=== PATIENT | male | born 1950 | race Caucasian/White ===

== ENCOUNTER → 2016-09-12 | Outpatient (CLI) | payer OTHER ==
[~2016-09-12] MED LIST: AMOX TR-K CLV1 EAC4 PO; AZITHROMYCIN250 MG PO; BENZONATATE100 MG PO; CHERATUSSIN AC473 ML PO; CLARITIN10 MG PO; COMBIVENT RESPIM4 GM IH; DIFLUCAN100 MG PO; DULERA 200 MCG/13 GM IH; DUONEB 2.5-0.5 M3 ML AEROSOL; FLEXERIL5 MG PO; LEVAQUIN750 MG PO; LIDOCAINE TP; LIPITOR20 MG PO; LISINOPRIL20 MG PO; LOFIBRA,TRIGLI160 MG PO; LORAZEPAM0.5 MG PO; MEDOLOR PAK 2.1 EACH TP; METOCLOPRAMIDE H5 MG PO; MEVACOR10 M1 PO; NEBULIZER MC; NORVASC5 MG PO; OMEPRAZOLE20 MG PO; OMEPRAZOLE40 M1 PO; OXYCONTIN10 MG PO; PRAVASTATIN SOD80 MG PO; PREDNISONE10 M1 PO; PREDNISONE10 MG PO; PRILOCAINE TP; PROTONIX40 MG PO; PROZAC10 MG PO; RANITIDINE HCL150 MG PO; ROXICODONE5 MG PO; SINGULAIR10 MG PO; SYMBICORT60 INHALAT IH; SYNTHROID50 MCG PO; VANTIN200 MG PO; ZANTAC150 MG PO; ZESTRIL20 MG PO; ZOFRAN4 MG PO; ZYPREXA10 MG PO
== END | disposition home or self-care (01) ==
DX: R13.10 Dysphagia, unspecified (principal); J38.00 Paralysis of vocal cords and larynx, unspecified; C34.90 Malignant neoplasm of unspecified part of unspecified bronchus or lung
CPT/HCPCS: 92611 GN

== ENCOUNTER 2016-09-25 09:13 | Inpatient (IN) | payer OTHER ==
[~2016-09-25] VITALS: Ht 175.3 cm; Wt 67.2 kg
[~2016-09-25 09:13] MED LIST changes: -AMOX TR-K CLV1 EAC4 PO; -BENZONATATE100 MG PO; -PRAVASTATIN SOD80 MG PO; -RANITIDINE HCL150 MG PO
[2016-09-25 10:04] LABS: EOSINOPHIL (%) 0 % (0-5); HEMATOCRIT 26.3 % (38.0-50.0); IMMATURE GRANULOCYTE (%) 0.3 % (0.0-0.7); IMMATURE GRANULOCYTE COUNT 0.2 K/uL; LYMPHOCYTE COUNT 0.7 K/uL (1.0-2.8); MCHC 31.9 G/DL (30.0-36.0); MCV 87.7 FL (86-99); MONOCYTE (%) 7.6 % (3-12); MONOCYTE COUNT 0.4 K/uL (0-0.8); NEUTROPHIL (%) 80.4 % (45-76); NEUTROPHIL COUNT 4.6 K/uL (1.8-6.4); RBC DIS.WIDTH-CV 14.6 % (11.8-14.6); RBC DIS.WIDTH-SD 44.4 % (39-53); WHITE BLOOD COUNT 5.8 K/uL (4.1-10.2)
[2016-09-25 10:13] LABS: CHLORIDE 100 mEq/L (99-109); POTASSIUM 3.7 mEq/L (3.7-5.4); SODIUM 134 mEq/L (136-147)
[2016-09-25 10:14] LABS: INTER. NORMALIZED RATIO 1.1; PROTHROMBIN TIME 10.7 (9.2-11.2); PTT 27.4 (25-32)
[2016-09-25 10:16] LABS: GLUCOSE 119 mg/dL (70-99)
[2016-09-25 10:17] LABS: ANION GAP 10 MEQ/L (2-14)
[2016-09-25 10:18] LABS: TOTAL BILIRUBIN 0.4 mg/dL (0.0-1.0)
[2016-09-25 10:19] LABS: ALKALINE PHOSPHATASE 78 IU/L (3-129); GFR ESTIMATE (CALCULATED) > 59 mL/min/
[2016-09-25 10:20] LABS: UREA NITROGEN (BUN) 9 mg/dL (9-23)
[2016-09-25 10:25] LABS: TROP-I INTERPRETATION NEGATIVE; TROPONIN-I < 0.01 ng/mL (0.0-0.30)
[2016-09-25] MEDS ORDERED: RANITIDINE HCL150 MG PO (12:53)
[2016-09-25] MEDS ORDERED: BENZONATATE100 MG PO (12:54)
[2016-09-25 13:27] LABS: MEAN PLAT.VOLUME 10.5 uM^3 (9.0-12.4); PLAT.SUFFICIENCY DECREASED; USER ID SDF
[2016-09-25 13:28] LABS: PLATELET COUNT 97 K/uL (156-360)
[2016-09-25 15:26] VITALS: BP 140/71
[2016-09-25 17:45] VITALS: BP 138/64
[2016-09-25 20:07] VITALS: BP 154/76
[2016-09-25 21:09] LABS: HEMATOCRIT 21.2 % (38.0-50.0); MCV 86.9 FL (86-99)
[2016-09-25 23:28] VITALS: BP 127/73
[2016-09-25 23:43] VITALS: BP 124/70
[2016-09-25 23:57] VITALS: BP 123/69
[2016-09-26] VITALS (12 sets, daily range): BP systolic 108–152; BP diastolic 57–82
[2016-09-26 06:49] LABS: HEMATOCRIT 27.6 % (38.0-50.0); MCH 29.1 PG (29.0-34.0); MCV 88.2 FL (86-99); MEAN PLAT.VOLUME 11.4 uM^3 (9.0-12.4); PLATELET COUNT 71 K/uL (156-360); RBC DIS.WIDTH-CV 14.6 % (11.8-14.6); RBC DIS.WIDTH-SD 46.7 % (39-53); RED BLOOD COUNT 3.13 M/uL (4.00-5.50); WHITE BLOOD COUNT 5.1 K/uL (4.1-10.2)
[2016-09-26 11:59] LABS: HEMATOCRIT 27.1 % (38.0-50.0); MCV 88.3 FL (86-99)
[2016-09-26 17:52] LABS: HEMATOCRIT 27.5 % (38.0-50.0); MCV 88.4 FL (86-99)
[2016-09-27 00:15] VITALS: BP 172/92
[2016-09-27 04:05] VITALS: BP 127/61
[2016-09-27 06:25] LABS: HEMATOCRIT 24.9 % (38.0-50.0); MCH 29.9 PG (29.0-34.0); MCHC 33.7 G/DL (30.0-36.0); MCV 88.6 FL (86-99); PLATELET COUNT 66 K/uL (156-360); RBC DIS.WIDTH-SD 48.4 % (39-53); RED BLOOD COUNT 2.81 M/uL (4.00-5.50); WHITE BLOOD COUNT 4.1 K/uL (4.1-10.2)
[2016-09-27 08:11] VITALS: BP 142/69
[2016-09-27 17:01] VITALS: BP 126/63
[2016-09-27 20:00] VITALS: BP 147/69
[2016-09-27 20:07] LABS: HEMATOCRIT 25.8 % (38.0-50.0); MCV 89.3 FL (86-99)
[2016-09-28] VITALS: BP 132/77
[2016-09-28 04:11] VITALS: BP 129/62
[2016-09-28 07:19] LABS: HEMATOCRIT 25.1 % (38.0-50.0); MCH 29.5 PG (29.0-34.0); MCHC 33.1 G/DL (30.0-36.0); MCV 89.3 FL (86-99); MEAN PLAT.VOLUME 10.6 uM^3 (9.0-12.4); PLATELET COUNT 79 K/uL (156-360); RBC DIS.WIDTH-CV 15.2 % (11.8-14.6); RBC DIS.WIDTH-SD 49.1 % (39-53); RED BLOOD COUNT 2.81 M/uL (4.00-5.50)
[2016-09-28 07:34] VITALS: BP 138/73
[2016-09-28 17:26] VITALS: BP 129/63
[2016-09-28 21:46] LABS: MCV 89.6 FL (86-99)
[2016-09-29 00:33] VITALS: BP 147/67
[2016-09-29 04:01] VITALS: BP 133/67
[2016-09-29 07:52] VITALS: BP 127/69
[2016-09-29 09:21] LABS: HEMATOCRIT 24.6 % (38.0-50.0); MCH 28.7 PG (29.0-34.0); MCHC 32.1 G/DL (30.0-36.0); MCV 89.5 FL (86-99); MEAN PLAT.VOLUME 10.7 uM^3 (9.0-12.4); PLATELET COUNT 89 K/uL (156-360); RBC DIS.WIDTH-CV 15.6 % (11.8-14.6); RBC DIS.WIDTH-SD 50.1 % (39-53); RED BLOOD COUNT 2.75 M/uL (4.00-5.50); WHITE BLOOD COUNT 4.4 K/uL (4.1-10.2)
[2016-09-29 09:49] LABS: ANION GAP 7 MEQ/L (2-14); CHLORIDE 102 MEQ/L (99-109); GFR ESTIMATE (CALCULATED) > 59 mL/min/; GLUCOSE 115 mg/dL (70-99); SAMPLE HEMOLYSIS CHECK 0; SAMPLE ICTERIC CHECK 0; SAMPLE LIPEMIA CHECK 0; SODIUM 135 MEQ/L (136-147); UREA NITROGEN (BUN) 3 mg/dL (9-23)
[2016-09-29 11:53] VITALS: BP 108/57
[2016-09-29 16:00] VITALS: BP 120/60
[2016-09-29 19:59] LABS: HEMATOCRIT 24.1 % (38.0-50.0); MCV 89.9 FL (86-99)
[2016-09-29 23:19] VITALS: BP 122/72
[2016-09-30 05:59] LABS: EOSINOPHIL (%) 1.1 % (0-5); HEMATOCRIT 24.1 % (38.0-50.0); IMMATURE GRANULOCYTE (%) 0.3 % (0.0-0.7); LYMPHOCYTE COUNT 0.6 K/uL (1.0-2.8); MCH 29.2 PG (29.0-34.0); MCHC 32.4 G/DL (30.0-36.0); MCV 90.3 FL (86-99); MEAN PLAT.VOLUME 10.4 uM^3 (9.0-12.4); MONOCYTE (%) 9.2 % (3-12); MONOCYTE COUNT 0.3 K/uL (0-0.8); NEUTROPHIL (%) 71.2 % (45-76); NEUTROPHIL COUNT 2.5 K/uL (1.8-6.4); PLATELET COUNT 108 K/uL (156-360); RBC DIS.WIDTH-CV 15.7 % (11.8-14.6); RED BLOOD COUNT 2.67 M/uL (4.00-5.50); WHITE BLOOD COUNT 3.6 K/uL (4.1-10.2)
[2016-09-30 06:25] LABS: ANION GAP 7 MEQ/L (2-14); CHLORIDE 105 MEQ/L (99-109); GFR ESTIMATE (CALCULATED) > 59 mL/min/; GLUCOSE 96 mg/dL (70-99); MAGNESIUM 1.3 mg/dl (1.3-2.7); SAMPLE HEMOLYSIS CHECK 0; SAMPLE ICTERIC CHECK 0; SAMPLE LIPEMIA CHECK 0; SODIUM 139 MEQ/L (136-147); UREA NITROGEN (BUN) 3 mg/dL (9-23)
[2016-09-30 06:26] LABS: POTASSIUM 3.9 MEQ/L (3.7-5.4)
[2016-09-30 08:07] VITALS: BP 154/72
[2016-09-30 15:55] VITALS: BP 125/68
[2016-09-30 18:11] LABS: HEMATOCRIT 26.2 % (38.0-50.0); MCV 90.3 FL (86-99)
[2016-09-30 23:59] VITALS: BP 136/74
[2016-10-01 05:36] LABS: EOSINOPHIL (%) 1.2 % (0-5); EOSINOPHIL COUNT 0.1 K/uL (0-0.3); HEMATOCRIT 26.5 % (38.0-50.0); IMMATURE GRANULOCYTE (%) 0.2 % (0.0-0.7); LYMPHOCYTE COUNT 0.8 K/uL (1.0-2.8); MCH 28.7 PG (29.0-34.0); MCHC 32.1 G/DL (30.0-36.0); MCV 89.5 FL (86-99); MEAN PLAT.VOLUME 10.4 uM^3 (9.0-12.4); MONOCYTE (%) 9.4 % (3-12); MONOCYTE COUNT 0.4 K/uL (0-0.8); NEUTROPHIL (%) 68.9 % (45-76); NEUTROPHIL COUNT 2.9 K/uL (1.8-6.4); PLATELET COUNT 120 K/uL (156-360); RBC DIS.WIDTH-CV 15.7 % (11.8-14.6); RBC DIS.WIDTH-SD 50.5 % (39-53); RED BLOOD COUNT 2.96 M/uL (4.00-5.50); WHITE BLOOD COUNT 4.2 K/uL (4.1-10.2)
[2016-10-01 06:21] LABS: ANION GAP 9 MEQ/L (2-14); CHLORIDE 103 MEQ/L (99-109); GFR ESTIMATE (CALCULATED) > 59 mL/min/; GLUCOSE 95 mg/dL (70-99); POTASSIUM 3.5 MEQ/L (3.7-5.4); SAMPLE HEMOLYSIS CHECK 0; SAMPLE ICTERIC CHECK 0; SAMPLE LIPEMIA CHECK 0; SODIUM 138 MEQ/L (136-147); UREA NITROGEN (BUN) 3 mg/dL (9-23)
[2016-10-01 07:32] VITALS: BP 136/68
[2016-10-01] MEDS ORDERED: PRAVASTATIN SOD80 MG PO (12:24)
[2016-10-01] MEDS ORDERED: AMOX TR-K CLV1 EAC4 PO (12:24)
[2016-10-01] MEDS ORDERED: PROTONIX40 MG PO (12:25)
[2016-10-02 08:42] LABS: INTERNAL CONTROL VALID? YES
== END 2016-10-01 14:38 | disposition home health service (06) | DRG 377 ==
LOC: EME 09:13 → EDOF 12:36 → 5WEST 12:36 → 3EAST 09-26 10:35
PROVIDERS: Emergency Medicine; Internal Medicine; Internal Medicine Gastroenterology; Physician Assistant; Physician Assistant Medical; Student in an Organized Health Care Education/Training Program
PROC: 30233N1 Transfusion of Nonautologous Red Blood Cells into Peripheral Vein, Percutaneous Approach (ICD-10-PCS; principal; 2016-09-25)
PROC: 0DB68ZX Excision of Stomach, Via Natural or Artificial Opening Endoscopic, Diagnostic (ICD-10-PCS; principal; 2016-09-25)
DX: K92.0 Hematemesis (principal); J85.2 Abscess of lung without pneumonia; K22.10 Ulcer of esophagus without bleeding; D62 Acute posthemorrhagic anemia; C34.11 Malignant neoplasm of upper lobe, right bronchus or lung; K25.7 Chronic gastric ulcer without hemorrhage or perforation; K92.1 Melena; E87.6 Hypokalemia; J44.9 Chronic obstructive pulmonary disease, unspecified; G47.33 Obstructive sleep apnea (adult) (pediatric); K44.9 Diaphragmatic hernia without obstruction or gangrene; D69.6 Thrombocytopenia, unspecified; I10 Essential (primary) hypertension; E78.5 Hyperlipidemia, unspecified; K21.9 Gastro-esophageal reflux disease without esophagitis; E03.9 Hypothyroidism, unspecified; Z87.891 Personal history of nicotine dependence; Z86.11 Personal history of tuberculosis
CPT/HCPCS: 71010; 71020; 71260; 77385; 80048; 80053; 82272; 83735; 83880; 84484; 85014; 85018; 85025; 85027; 85610; 85730; 86850; 86900; 86901; 86920; 88305; 88342 TC; 93005; 94640; 94640 76; 99202; 99281; 99285; B4087; C9113; G0378; J1940; J2405; J2543; J7042; J7050; P9016

== ENCOUNTER 2016-10-24 12:14 | Observation (INO) | payer OTHER ==
[~2016-10-24] VITALS: Ht 175.3 cm; Wt 70.0 kg
[~2016-10-24 12:14] MED LIST changes: +AMOX TR-K CLV1 EAC4 PO; +BENZONATATE100 MG PO; +LIDOCAINE20 MG/1 M5 PO; +PRAVASTATIN SOD80 MG PO; +RANITIDINE HCL150 MG PO
[2016-10-24 16:35] LABS: CHLORIDE 96 mEq/L (99-109); POTASSIUM 3.9 mEq/L (3.7-5.4); SODIUM 130 mEq/L (136-147)
[2016-10-24 16:36] LABS: HEMATOCRIT 20.4 % (38.0-50.0); MCH 29.7 PG (29.0-34.0); MCHC 34.3 G/DL (30.0-36.0); MCV 86.4 FL (86-99); RBC DIS.WIDTH-CV 13.6 % (11.8-14.6); RBC DIS.WIDTH-SD 41.2 % (39-53)
[2016-10-24 16:37] LABS: GLUCOSE 104 mg/dL (70-99); RED BLOOD COUNT 2.36 M/uL (4.00-5.50); WHITE BLOOD COUNT 0.6 K/uL (4.1-10.2)
[2016-10-24 16:38] LABS: ANION GAP 10 MEQ/L (2-14)
[2016-10-24 16:41] LABS: GFR ESTIMATE (CALCULATED) > 59 mL/min/
[2016-10-24 16:42] LABS: UREA NITROGEN (BUN) 19 mg/dL (9-23)
[2016-10-24 16:48] LABS: TROP-I INTERPRETATION NEGATIVE; TROPONIN-I < 0.01 ng/mL (0.0-0.30)
[2016-10-24 18:13] LABS: PLAT.SUFFICIENCY DECREASED; USER ID SS
[2016-10-24 18:14] LABS: ABS NEUTROPHIL COUNT 0.25; MEAN PLAT.VOLUME 11.4 uM^3 (9.0-12.4); PLATELET COUNT 13 K/uL (156-360)
[2016-10-24 18:15] LABS: DELETE MACHINE DIFF? YES
[2016-10-24 21:00] LABS: HEMATOCRIT 20.2 % (38.0-50.0); MCH 29.1 PG (29.0-34.0); MCHC 33.2 G/DL (30.0-36.0); MCV 87.8 FL (86-99); RBC DIS.WIDTH-CV 13.6 % (11.8-14.6); RBC DIS.WIDTH-SD 41.9 % (39-53)
[2016-10-24 21:01] LABS: WHITE BLOOD COUNT 0.5 K/uL (4.1-10.2)
[2016-10-24 21:06] VITALS: BP 141/80
[2016-10-24 21:22] VITALS: BP 130/76
[2016-10-24] MEDS ORDERED: ALBUTEROL2.5 MG/3 M IH (21:42)
[2016-10-24] MEDS ORDERED: FLONASE16 G1 BOTH NARES (21:47)
[2016-10-24] MEDS ORDERED: KLOR-CON 1010 ME1 PO (21:47)
[2016-10-24] MEDS ORDERED: OCEAN NASAL 0.645 ML BOTH NARES (21:48)
[2016-10-24] MEDS ORDERED: PROAIR HFA8.5 GM IH (21:48)
[2016-10-24] MEDS ORDERED: COMPAZINE5 MG PO (21:48)
[2016-10-24] MEDS ORDERED: MAGIC MOUTHWASH PO (21:50)
[2016-10-24 22:19] VITALS: BP 127/84
[2016-10-24 22:19] LABS: EOSINOPHIL (%) 0 % (0-5); HEMATOLOGY COMMENT 1 SMEAR COMPATIBLE; LYMPHOCYTE COUNT 0.2 K/uL (1.0-2.8); MEAN PLAT.VOLUME 9.8 uM^3 (9.0-12.4); MONOCYTE (%) 21.2 % (3-12); MONOCYTE COUNT 0.1 K/uL (0-0.8); NEUTROPHIL (%) 34.6 % (45-76); NEUTROPHIL COUNT 0.2 K/uL (1.8-6.4); PLAT.SUFFICIENCY DECREASED
[2016-10-24 22:20] LABS: PLATELET COUNT 11 K/uL (156-360)
[2016-10-24 22:38] VITALS: BP 138/77
[2016-10-24 22:52] VITALS: BP 132/74
[2016-10-24 23:52] VITALS: BP 147/97
[2016-10-25] VITALS (12 sets, daily range): BP systolic 123–170; BP diastolic 60–82
[2016-10-25 09:25] LABS: HEMATOCRIT 26.9 % (38.0-50.0); MCH 30.5 PG (29.0-34.0); MCHC 35.3 G/DL (30.0-36.0); MCV 86.5 FL (86-99); RBC DIS.WIDTH-CV 13.8 % (11.8-14.6); RBC DIS.WIDTH-SD 43.9 % (39-53)
[2016-10-25 09:27] LABS: ANION GAP 9 MEQ/L (2-14); CHLORIDE 95 MEQ/L (99-109); GFR ESTIMATE (CALCULATED) > 59 mL/min/; GLUCOSE 105 mg/dL (70-99); POTASSIUM 3.4 MEQ/L (3.7-5.4); SAMPLE HEMOLYSIS CHECK 0; SAMPLE ICTERIC CHECK 0; SAMPLE LIPEMIA CHECK 0; SODIUM 131 MEQ/L (136-147); UREA NITROGEN (BUN) 13 mg/dL (9-23)
[2016-10-25 09:34] LABS: MEAN PLAT.VOLUME 9.2 uM^3 (9.0-12.4)
[2016-10-25 09:43] LABS: PLATELET COUNT 43 K/uL (156-360); RED BLOOD COUNT 3.11 M/uL (4.00-5.50); WHITE BLOOD COUNT 0.7 K/uL (4.1-10.2)
== END 2016-10-25 15:22 | disposition home or self-care (01) ==
LOC: EXP 12:14 → EME 12:14 → EDOF 23:30 → 5WEST 23:30 → EDOF 23:30 → 5WEST 10-25 00:48
PROVIDERS: Emergency Medicine; Hospitalist
PROC: 30233N1 Transfusion of Nonautologous Red Blood Cells into Peripheral Vein, Percutaneous Approach (ICD-10-PCS; principal; 2016-10-24)
DX: D61.810 Antineoplastic chemotherapy induced pancytopenia (principal); C34.11 Malignant neoplasm of upper lobe, right bronchus or lung; Z87.891 Personal history of nicotine dependence; D70.9 Neutropenia, unspecified; J85.2 Abscess of lung without pneumonia; J44.9 Chronic obstructive pulmonary disease, unspecified; I10 Essential (primary) hypertension; E03.9 Hypothyroidism, unspecified; E78.5 Hyperlipidemia, unspecified; R00.0 Tachycardia, unspecified; G47.30 Sleep apnea, unspecified; G89.29 Other chronic pain; Z87.19 Personal history of other diseases of the digestive system; Z92.21 Personal history of antineoplastic chemotherapy; Z92.3 Personal history of irradiation; Z82.3 Family history of stroke; Z80.9 Family history of malignant neoplasm, unspecified; Z88.6 Allergy status to analgesic agent
CPT/HCPCS: 71020; 77385; 80048; 80053; 81003; 83605; 84484; 85009; 85025; 85025 91; 85027; 86850; 86900; 86901; 86920; 87040; 93005; 94640; 94640 76; G0378; J2543; J7030; J7050; P9016; P9035

== ENCOUNTER 2016-11-05 09:54 | Observation (INO) | payer OTHER ==
[~2016-11-05] VITALS: Ht 175.3 cm; Wt 68.0 kg
[~2016-11-05 09:54] MED LIST changes: +ALBUTEROL2.5 MG/3 M IH; +COMPAZINE5 MG PO; +FLONASE16 G1 BOTH NARES; +KLOR-CON 1010 ME1 PO; +MAGIC MOUTHWASH PO; +OCEAN NASAL 0.645 ML BOTH NARES; +PROAIR HFA8.5 GM IH
[2016-11-05 12:12] LABS: EOSINOPHIL (%) 0 % (0-5); IMMATURE GRANULOCYTE (%) 0.4 % (0.0-0.7); IMMATURE GRANULOCYTE COUNT 0.1 K/uL; LYMPHOCYTE COUNT 0.3 K/uL (1.0-2.8); MCHC 33.5 G/DL (30.0-36.0); MCV 89.7 FL (86-99); MEAN PLAT.VOLUME 10.8 uM^3 (9.0-12.4); MONOCYTE (%) 10.6 % (3-12); MONOCYTE COUNT 0.3 K/uL (0-0.8); NEUTROPHIL (%) 78.4 % (45-76); NEUTROPHIL COUNT 2.2 K/uL (1.8-6.4); PLATELET COUNT 70 K/uL (156-360); RBC DIS.WIDTH-CV 13.7 % (11.8-14.6); RBC DIS.WIDTH-SD 42.3 % (39-53)
[2016-11-05 12:14] LABS: CHLORIDE 101 mEq/L (99-109); POTASSIUM 3.9 mEq/L (3.7-5.4); SODIUM 134 mEq/L (136-147); WHITE BLOOD COUNT 2.8 K/uL (4.1-10.2)
[2016-11-05 12:18] LABS: ANION GAP 9 MEQ/L (2-14)
[2016-11-05 12:19] LABS: TOTAL BILIRUBIN 0.2 mg/dL (0.0-1.0)
[2016-11-05 12:20] LABS: ALKALINE PHOSPHATASE 62 IU/L (3-129); GFR ESTIMATE (CALCULATED) > 59 mL/min/; GLUCOSE 106 mg/dL (70-99)
[2016-11-05 12:21] LABS: UREA NITROGEN (BUN) 16 mg/dL (9-23)
[2016-11-05 15:55] LABS: INFLUENZA A VIRAL ANTIGEN NEGATIVE; INFLUENZA B VIRAL ANTIGEN NEGATIVE
[2016-11-05 19:40] VITALS: BP 119/65
[2016-11-06 00:25] VITALS: BP 107/61
[2016-11-06 04:53] VITALS: BP 101/63
[2016-11-06 08:09] VITALS: BP 109/68
[2016-11-06 10:19] LABS: HEMATOCRIT 23.9 % (38.0-50.0); MCH 30.5 PG (29.0-34.0); MCHC 33.9 G/DL (30.0-36.0); MCV 89.8 FL (86-99); MEAN PLAT.VOLUME 10.7 uM^3 (9.0-12.4); PLATELET COUNT 69 K/uL (156-360); RBC DIS.WIDTH-CV 14.5 % (11.8-14.6); RBC DIS.WIDTH-SD 47.1 % (39-53); RED BLOOD COUNT 2.66 M/uL (4.00-5.50); WHITE BLOOD COUNT 2.2 K/uL (4.1-10.2)
[2016-11-06 10:54] LABS: ANION GAP 7 MEQ/L (2-14); CHLORIDE 104 MEQ/L (99-109); GFR ESTIMATE (CALCULATED) > 59 mL/min/; GLUCOSE 112 mg/dL (70-99); POTASSIUM 3.4 MEQ/L (3.7-5.4); SAMPLE HEMOLYSIS CHECK 0; SAMPLE ICTERIC CHECK 0; SAMPLE LIPEMIA CHECK 0; SODIUM 134 MEQ/L (136-147); UREA NITROGEN (BUN) 11 mg/dL (9-23)
[2016-11-06] MEDS ORDERED: MYCOSTATIN 100,60 ML PO (11:01)
[2016-11-06 11:36] VITALS: BP 114/70
== END 2016-11-06 14:13 | disposition home or self-care (01) ==
LOC: EME 09:54 → EDOF 16:06 → 5WEST 16:06
PROVIDERS: Internal Medicine; Physician Assistant
DX: E86.0 Dehydration (principal); C34.11 Malignant neoplasm of upper lobe, right bronchus or lung; J85.2 Abscess of lung without pneumonia; T66.XXXA Radiation sickness, unspecified, initial encounter; K20.9 Esophagitis, unspecified; D61.810 Antineoplastic chemotherapy induced pancytopenia; R11.2 Nausea with vomiting, unspecified; R05 Cough; R07.9 Chest pain, unspecified; J45.909 Unspecified asthma, uncomplicated; D72.819 Decreased white blood cell count, unspecified; I10 Essential (primary) hypertension; K21.9 Gastro-esophageal reflux disease without esophagitis; G43.909 Migraine, unspecified, not intractable, without status migrainosus; Z87.891 Personal history of nicotine dependence; J44.9 Chronic obstructive pulmonary disease, unspecified; E03.9 Hypothyroidism, unspecified; E78.5 Hyperlipidemia, unspecified
CPT/HCPCS: 71250; 80048; 80053; 81003; 85025; 85027; 87502; 94640; 94640 76; 99202; 99281; 99285; G0378; J3010; J7030; J7120

== ENCOUNTER 2016-12-11 10:24 | Inpatient (IN) | payer OTHER ==
[2016-12-11] VITALS (12 sets, daily range): BP systolic 81–113; BP diastolic 51–69
[~2016-12-11] VITALS: Ht 175.3 cm; Wt 63.2 kg
[~2016-12-11 10:24] MED LIST changes: +MYCOSTATIN 100,60 ML PO
[2016-12-11 11:18] LABS: EOSINOPHIL (%) 0.7 % (0-5); EOSINOPHIL COUNT 0.1 K/uL (0-0.3); HEMATOCRIT 23.6 % (38.0-50.0); IMMATURE GRANULOCYTE (%) 0.7 % (0.0-0.7); IMMATURE GRANULOCYTE COUNT 0.1 K/uL; INSTRUMENT ABS NEUTROPHIL CT 6.6 K/uL; LYMPHOCYTE COUNT 0.6 K/uL (1.0-2.8); MCHC 33.1 G/DL (30.0-36.0); MCV 96.7 FL (86-99); MEAN PLAT.VOLUME 10.3 uM^3 (9.0-12.4); MONOCYTE COUNT 0.8 K/uL (0-0.8); NEUTROPHIL COUNT 6.6 K/uL (1.8-6.4); PLATELET COUNT 181 K/uL (156-360); RBC DIS.WIDTH-CV 15.3 % (11.8-14.6); RBC DIS.WIDTH-SD 54.3 % (39-53); RED BLOOD COUNT 2.44 M/uL (4.00-5.50); WHITE BLOOD COUNT 8.1 K/uL (4.1-10.2)
[2016-12-11 11:27] LABS: CHLORIDE 102 mEq/L (99-109); POTASSIUM 4.2 mEq/L (3.7-5.4); SODIUM 134 mEq/L (136-147)
[2016-12-11 11:29] LABS: GLUCOSE 112 mg/dL (70-99)
[2016-12-11 11:31] LABS: ANION GAP 8 MEQ/L (2-14); TOTAL BILIRUBIN 0.3 mg/dL (0.0-1.0)
[2016-12-11 11:33] LABS: ALKALINE PHOSPHATASE 38 IU/L (3-129); GFR ESTIMATE (CALCULATED) > 59 mL/min/
[2016-12-11 11:34] LABS: UREA NITROGEN (BUN) 18 mg/dL (9-23)
[2016-12-11 11:38] LABS: TROP-I INTERPRETATION NEGATIVE; TROPONIN-I < 0.01 ng/mL (0.0-0.30)
[2016-12-11] MEDS ORDERED: DULERA 200 MCG/13 GM IH (18:51)
[2016-12-11] MEDS ORDERED: LIPITOR20 MG PO (18:51)
[2016-12-11] MEDS ORDERED: ROXICODONE5 MG PO (18:51)
[2016-12-11] MEDS ORDERED: SYNTHROID50 MCG PO (18:51)
[2016-12-11] MEDS ORDERED: OXYCONTIN10 MG PO (18:52)
[2016-12-11] MEDS ORDERED: METOCLOPRAMIDE H5 MG PO (18:52)
[2016-12-11] MEDS ORDERED: CHERATUSSIN AC473 ML PO (18:52)
[2016-12-11] MEDS ORDERED: SINGULAIR10 MG PO (18:53)
[2016-12-11] MEDS ORDERED: LISINOPRIL20 MG PO (18:53)
[2016-12-11] MEDS ORDERED: SYMBICORT60 INHALAT IH (18:53)
[2016-12-11] MEDS ORDERED: PEPCID40 MG PO (18:53)
[2016-12-11] MEDS ORDERED: ZOFRAN4 MG PO (18:54)
[2016-12-11] MEDS ORDERED: AMLODIPINE BESYL5 MG PO (18:54)
[2016-12-11] MEDS ORDERED: LOVASTATIN10 MG PO (18:54)
[2016-12-11] MEDS ORDERED: DERMACINRX EMP1 EACH TP (18:55)
[2016-12-11] MEDS ORDERED: PROVENTIL,2.5 MG/3 M IH (18:55)
[2016-12-11] MEDS ORDERED: BENZONATATE100 MG PO (18:55)
[2016-12-11] MEDS ORDERED: PROTONIX40 MG PO (18:55)
[2016-12-11] MEDS ORDERED: LORAZEPAM0.5 MG PO (18:55)
[2016-12-11] MEDS ORDERED: FLONASE16 G1 BOTH NARES (18:56)
[2016-12-11] MEDS ORDERED: ALBUTEROL2.5 MG/3 M IH (18:56)
[2016-12-11] MEDS ORDERED: OCEAN NASAL 0.645 ML BOTH NARES (18:57)
[2016-12-11] MEDS ORDERED: COMPAZINE5 MG PO (18:57)
[2016-12-11] MEDS ORDERED: K-DUR10 MEQ PO (18:57)
[2016-12-11] MEDS ORDERED: MAGIC MOUTH WASH PO (18:58)
[2016-12-11] MEDS ORDERED: LIDOCAINE20 MG/1 M5 PO (18:59)
[2016-12-11] MEDS ORDERED: LOPERAMIDE2 MG PO (18:59)
[2016-12-12 02:38] LABS: HEMATOCRIT 26.2 % (38.0-50.0); MCV 93.6 FL (86-99)
[2016-12-12 03:33] VITALS: BP 105/57
[2016-12-12 07:35] VITALS: BP 118/72
[2016-12-12 09:12] LABS: HEMATOCRIT 27.5 % (38.0-50.0); MCH 31.7 PG (29.0-34.0); MCHC 33.5 G/DL (30.0-36.0); MCV 94.8 FL (86-99); RBC DIS.WIDTH-CV 16.7 % (11.8-14.6); RBC DIS.WIDTH-SD 57.6 % (39-53); WHITE BLOOD COUNT 7.8 K/uL (4.1-10.2)
[2016-12-12 10:44] LABS: MEAN PLAT.VOLUME 10.3 uM^3 (9.0-12.4)
[2016-12-12 10:46] LABS: PLATELET COUNT 126 K/uL (156-360)
[2016-12-12 10:59] VITALS: BP 120/80
[2016-12-12 15:10] VITALS: BP 112/58
== END 2016-12-12 17:14 | disposition home or self-care (01) | DRG 812 ==
LOC: EME 10:24 → EDOF 13:54 → 5EAST 13:54
PROVIDERS: Emergency Medicine; Internal Medicine
PROC: 30233N1 Transfusion of Nonautologous Red Blood Cells into Peripheral Vein, Percutaneous Approach (ICD-10-PCS; principal; 2016-12-11)
DX: D64.81 Anemia due to antineoplastic chemotherapy (principal); C34.11 Malignant neoplasm of upper lobe, right bronchus or lung; C79.89 Secondary malignant neoplasm of other specified sites; Z92.3 Personal history of irradiation; Z92.21 Personal history of antineoplastic chemotherapy; K20.8 Other esophagitis; I10 Essential (primary) hypertension; E03.9 Hypothyroidism, unspecified; E86.0 Dehydration; K92.0 Hematemesis; J44.9 Chronic obstructive pulmonary disease, unspecified; E87.6 Hypokalemia; K21.9 Gastro-esophageal reflux disease without esophagitis; K44.9 Diaphragmatic hernia without obstruction or gangrene; G47.33 Obstructive sleep apnea (adult) (pediatric); Z99.81 Dependence on supplemental oxygen; E78.5 Hyperlipidemia, unspecified; Z86.010 Personal history of colon polyps; Z87.891 Personal history of nicotine dependence
CPT/HCPCS: 71275; 74177; 80053; 81003; 83605; 83880; 84484; 85014; 85018; 85025; 85027; 86850; 86900; 86901; 86920; 87040; 93005; 94640; 94640 76; 94799; 99202; J1650; J7030; P9016

== ENCOUNTER → 2016-12-24 | Outpatient (CLI) | payer OTHER ==
[~2016-12-24] MED LIST changes: +AMLODIPINE BESYL5 MG PO; +DERMACINRX EMP1 EACH TP; +K-DUR10 MEQ PO; +LOPERAMIDE2 MG PO; +LOVASTATIN10 MG PO; +MAGIC MOUTH WASH PO; +PEPCID40 MG PO; +PROVENTIL,2.5 MG/3 M IH
[2016-12-24 10:15] LABS: INTER. NORMALIZED RATIO 1.1; PROTHROMBIN TIME 11.7 (9.2-11.2); PTT 27.3 (25-32)
== END | disposition home or self-care (01) ==
LOC: OPR 08:32 → EDSTATUS 09:00 → OPR 09:00
PROVIDERS: Internal Medicine Medical Oncology
PROC: BB24ZZZ Computerized Tomography (CT Scan) of Bilateral Lungs (ICD-10-PCS; principal; 2016-12-24)
DX: R91.1 Solitary pulmonary nodule (principal); Z53.09 Procedure and treatment not carried out because of other contraindication; C34.11 Malignant neoplasm of upper lobe, right bronchus or lung; Z87.891 Personal history of nicotine dependence; Z92.21 Personal history of antineoplastic chemotherapy; Z92.3 Personal history of irradiation
CPT/HCPCS: 71250; 85610; 85730; J3010

== ENCOUNTER → 2017-04-08 | Outpatient (CLI) | payer OTHER ==
[~2017-04-08] MED LIST changes: +CLARITIN,ALAVAR10 MG PO; +CYCLOBENZAPRINE5 MG PO; +FENOFIBRATE160 M1 PO
[2017-04-08 09:44] LABS: TYPE OF FLUID THORACENTESIS
[2017-04-08 10:41] LABS: BODY FLUID EOSINOPHILS 0 % (0-25); BODY FLUID RBC'S < 1000 /MM^3 (0-100); BODY FLUID WBC'S 354 /MM^3 (0-500); MONONUCLEAR WBC'S 97 %; POLYNUCLEAR WBC'S 3 % (0-25)
[2017-04-08 11:38] LABS: BODY FLUID LDH 58 IU/L; BODY FLUID PROTEIN < 3.0 G/DL
== END | disposition home or self-care (01) ==
LOC: RAD 08:22 → EDSTATUS 09:00
PROVIDERS: Radiology Diagnostic Radiology
PROC: 0W993ZZ Drainage of Right Pleural Cavity, Percutaneous Approach (ICD-10-PCS; principal; 2017-04-08)
DX: J91.0 Malignant pleural effusion (principal)
CPT/HCPCS: 76942; 82945; 83615 91; 84157; 87070; 87075; 87205; 88108; 88305; 89051

== ENCOUNTER 2017-05-22 10:58 | Emergency (ER) | payer OTHER ==
[~2017-05-22] VITALS: Ht 175.3 cm; Wt 68.0 kg
[2017-05-22 13:09] LABS: EOSINOPHIL (%) 0.5 % (0-5); EOSINOPHIL COUNT 0.1 K/uL (0-0.3); HEMATOCRIT 36.1 % (38.0-50.0); IMMATURE GRANULOCYTE (%) 0.4 % (0.0-0.7); INSTRUMENT ABS NEUTROPHIL CT 7.5 K/uL; LYMPHOCYTE COUNT 1.7 K/uL (1.0-2.8); MCHC 34.1 G/DL (30.0-36.0); MEAN PLAT.VOLUME 10.4 uM^3 (9.0-12.4); MONOCYTE (%) 9.3 % (3-12); NEUTROPHIL (%) 72.6 % (45-76); NEUTROPHIL COUNT 7.5 K/uL (1.8-6.4); PLATELET COUNT 180 K/uL (156-360); RBC DIS.WIDTH-SD 44.5 % (39-53); RED BLOOD COUNT 3.84 M/uL (4.00-5.50); WHITE BLOOD COUNT 10.4 K/uL (4.1-10.2)
[2017-05-22 13:18] LABS: CHLORIDE 102 mEq/L (99-109); POTASSIUM 2.9 mEq/L (3.7-5.4); SODIUM 141 mEq/L (136-147)
[2017-05-22 13:20] LABS: GLUCOSE 117 mg/dL (70-99)
[2017-05-22 13:22] LABS: ANION GAP 13 MEQ/L (2-14); TOTAL BILIRUBIN 0.6 mg/dL (0.0-1.0)
[2017-05-22 13:24] LABS: ALKALINE PHOSPHATASE 67 IU/L (3-129); GFR ESTIMATE (CALCULATED) > 59 mL/min/
[2017-05-22 13:25] LABS: UREA NITROGEN (BUN) 15 mg/dL (9-23)
[2017-05-22] MEDS ORDERED: ZOFRAN ODT4 MG PO (16:08)
[2017-05-22] MEDS ORDERED: MORPHINE S10 MG/5 ML PO (16:08)
[2017-05-22] MEDS ORDERED: OMEPRAZOLE10 M1 PO (16:12)
[2017-05-22 16:22] VITALS: BP 133/79
== END 2017-05-22 17:13 | disposition home or self-care (01) ==
LOC: EME 10:58
PROVIDERS: Physician Assistant
DX: G89.3 Neoplasm related pain (acute) (chronic) (principal); T40.4X5A Adverse effect of other synthetic narcotics, initial encounter; C34.90 Malignant neoplasm of unspecified part of unspecified bronchus or lung; E86.0 Dehydration; E87.6 Hypokalemia; K20.9 Esophagitis, unspecified; I10 Essential (primary) hypertension; J44.9 Chronic obstructive pulmonary disease, unspecified; Z87.891 Personal history of nicotine dependence; Z88.6 Allergy status to analgesic agent
CPT/HCPCS: 71020; 80053; 81003; 85025; 93005; 99281; 99285; J2270; J3480; J7120

== ENCOUNTER → 2017-05-29 | Outpatient (CLI) | payer OTHER ==
[~2017-05-29] VITALS: Ht 175.3 cm; Wt 68.0 kg
[~2017-05-29] MED LIST changes: +MORPHINE S10 MG/5 ML PO; +OMEPRAZOLE10 M1 PO; +ZOFRAN ODT4 MG PO
[2017-05-29 12:34] LABS: PTT 28.3 SEC (25-37)
== END | disposition home or self-care (01) ==
LOC: OPR 11:23 → EDSTATUS 12:00
PROVIDERS: Internal Medicine Medical Oncology
PROC: 0FB03ZX Excision of Liver, Percutaneous Approach, Diagnostic (ICD-10-PCS; principal; 2017-05-29)
DX: C78.7 Secondary malignant neoplasm of liver and intrahepatic bile duct (principal); C34.11 Malignant neoplasm of upper lobe, right bronchus or lung; K44.9 Diaphragmatic hernia without obstruction or gangrene; Z92.21 Personal history of antineoplastic chemotherapy; Z92.3 Personal history of irradiation; K21.0 Gastro-esophageal reflux disease with esophagitis; E78.5 Hyperlipidemia, unspecified; I10 Essential (primary) hypertension; E03.9 Hypothyroidism, unspecified; Z86.11 Personal history of tuberculosis; Z87.891 Personal history of nicotine dependence
CPT/HCPCS: 77012; 85610; 85730; 88307; 88341 TC; 88342 TC; J2270

== ENCOUNTER 2017-09-17 09:57 | Inpatient (IN) | payer OTHER ==
[~2017-09-17] VITALS: Ht 175.3 cm; Wt 66.7 kg
[~2017-09-17 09:57] MED LIST changes: +CEFTIN500 MG PO; +DELTASONE20 M1 PO; +MORPHINE SULFAT15 MG PO; +VIRTUSSIN DAC473 ML PO
[2017-09-17 11:03] LABS: HEMATOCRIT 39.5 % (38.0-50.0); HEMOGLOBIN 13.5 G/DL (12.5-16.6); MCH 31.5 PG (29.0-34.0); MCHC 34.2 G/DL (30.0-36.0); MCV 92.1 FL (86-99); RBC DIS.WIDTH-CV 14.3 % (11.8-14.6); RBC DIS.WIDTH-SD 48.2 % (39-53); RED BLOOD COUNT 4.29 M/uL (4.00-5.50)
[2017-09-17 11:07] LABS: PLATELET COUNT 298 K/uL (156-360)
[2017-09-17 11:12] LABS: CHLORIDE 99 mEq/L (99-109); POTASSIUM 2.9 mEq/L (3.7-5.4); SODIUM 137 mEq/L (136-147)
[2017-09-17 11:14] LABS: GLUCOSE 176 mg/dL (70-99)
[2017-09-17 11:18] LABS: CREATININE 0.9 mg/dL (0.6-1.3); GFR ESTIMATE (CALCULATED) > 59 mL/min/ (58.99-99999)
[2017-09-17 11:19] LABS: UREA NITROGEN (BUN) 19 mg/dL (9-23)
[2017-09-17 12:33] LABS: GASTRIC OCCULT BLD. POSITIVE
[2017-09-17 14:37] LABS: MAGNESIUM 1.3 mg/dL (1.3-2.7)
[2017-09-17 14:53] LABS: HEMATOCRIT 30.2 % (38.0-50.0); HEMOGLOBIN 10.2 G/DL (12.5-16.6); MCV 93.8 FL (86-99)
[2017-09-17] MEDS ORDERED: METRONIDAZOLE500 MG PO (15:00)
[2017-09-17] MEDS ORDERED: DOXYCYCLINE MO100 M1 PO (15:01)
[2017-09-17] MEDS ORDERED: PREDNISONE20 MG PO (15:02)
[2017-09-17] MEDS ORDERED: LISINOPRIL20 MG PO (15:06)
[2017-09-17 18:00] VITALS: BP 111/63
[2017-09-17 20:43] LABS: HEMATOCRIT 29.4 % (38.0-50.0); HEMOGLOBIN 9.5 G/DL (12.5-16.6); MCV 95.8 FL (86-99)
[2017-09-17 23:59] VITALS: BP 104/58
[2017-09-18 03:09] LABS: HEMATOCRIT 26.8 % (38.0-50.0); HEMOGLOBIN 8.8 G/DL (12.5-16.6); MCV 95.7 FL (86-99)
[2017-09-18 07:00] VITALS: BP 125/69
[2017-09-18 08:01] LABS: APPEARANCE CLEAR ((CLEAR)); BILIRUBIN NEGATIVE; BLOOD NEGATIVE; COLOR YELLOW ((YELLOW)); GLUCOSE (STRIP) NEGATIVE; KETONES NEGATIVE; LEUKOCYTES NEGATIVE; NITRITE NEGATIVE; PROTEIN (STRIP) NEGATIVE; UCUL ADDED? NO; UROBILINOGEN 0.2 MG/DL (0.2-1.0)
[2017-09-18 09:24] LABS: HEMATOCRIT 29.7 % (38.0-50.0); HEMOGLOBIN 9.7 G/DL (12.5-16.6); MCV 97.4 FL (86-99)
[2017-09-18 09:33] LABS: BASOPHIL (%) 0.1 % (0-1); EOSINOPHIL (%) 0.2 % (0-5); HEMATOCRIT 29.7 % (38.0-50.0); HEMOGLOBIN 9.6 G/DL (12.5-16.6); IMMATURE GRANULOCYTE (%) 0.9 % (0.0-0.7); LYMPHOCYTE (%) 8.6 % (15-42); MCH 31.6 PG (29.0-34.0); MCHC 32.3 G/DL (30.0-36.0); MCV 97.7 FL (86-99); MONOCYTE (%) 4.6 % (3-12); MONOCYTE COUNT 0.6 K/uL (0-0.8); NEUTROPHIL (%) 85.6 % (45-76); NEUTROPHIL COUNT 10.3 K/uL (1.8-6.4); RBC DIS.WIDTH-CV 14.6 % (11.8-14.6); RBC DIS.WIDTH-SD 52.4 % (39-53)
[2017-09-18 09:34] LABS: RED BLOOD COUNT 3.04 M/uL (4.00-5.50)
[2017-09-18 09:48] LABS: PLAT.SUFFICIENCY ADEQUATE
[2017-09-18 09:51] LABS: CHLORIDE 111 MEQ/L (99-109); CREATININE 0.7 MG/DL (0.6-1.3); GFR ESTIMATE (CALCULATED) > 59 mL/min/ (58.99-99999); GLUCOSE 130 mg/dL (70-99); POTASSIUM 3.2 MEQ/L (3.7-5.4); UREA NITROGEN (BUN) 12 mg/dL (9-23)
[2017-09-18 09:53] LABS: PLATELET COUNT 166 K/uL (156-360)
[2017-09-18 09:58] LABS: SODIUM 145 MEQ/L (136-147)
[2017-09-18 11:00] VITALS: BP 128/72
[2017-09-18 15:00] VITALS: BP 109/58
[2017-09-18 15:26] LABS: HEMATOCRIT 28.9 % (38.0-50.0); HEMOGLOBIN 9.4 G/DL (12.5-16.6); MCV 98.3 FL (86-99)
[2017-09-18 20:19] VITALS: BP 120/61
[2017-09-18 21:18] LABS: HEMATOCRIT 29.4 % (38.0-50.0); HEMOGLOBIN 9.5 G/DL (12.5-16.6); MCV 96.4 FL (86-99)
[2017-09-18 21:41] VITALS: BP 120/70
[2017-09-19 06:28] LABS: BASOPHIL (%) 0.1 % (0-1); EOSINOPHIL (%) 0 % (0-5); HEMATOCRIT 30.4 % (38.0-50.0); HEMOGLOBIN 9.6 G/DL (12.5-16.6); IMMATURE GRANULOCYTE (%) 0.7 % (0.0-0.7); LYMPHOCYTE (%) 6.9 % (15-42); LYMPHOCYTE COUNT 0.5 K/uL (1.0-2.8); MCH 30.3 PG (29.0-34.0); MCHC 31.6 G/DL (30.0-36.0); MCV 95.9 FL (86-99); MONOCYTE (%) 2.1 % (3-12); MONOCYTE COUNT 0.2 K/uL (0-0.8); NEUTROPHIL (%) 90.2 % (45-76); NEUTROPHIL COUNT 6.5 K/uL (1.8-6.4); PLATELET COUNT 194 K/uL (156-360); RBC DIS.WIDTH-CV 14.5 % (11.8-14.6); RBC DIS.WIDTH-SD 50.9 % (39-53); RED BLOOD COUNT 3.17 M/uL (4.00-5.50); WHITE BLOOD COUNT 7.3 K/uL (4.1-10.2)
[2017-09-19 06:54] LABS: CREATININE 0.7 MG/DL (0.6-1.3); GFR ESTIMATE (CALCULATED) > 59 mL/min/ (58.99-99999)
[2017-09-19 08:14] LABS: POTASSIUM 4.6 MEQ/L (3.7-5.4)
[2017-09-19] MEDS ORDERED: AUGMENTIN875 MG PO (10:12)
[2017-09-19] MEDS ORDERED: VANCOMYCIN125 MG/2.5 PO (10:12)
[2017-09-19] MEDS ORDERED: ADVAIR HFA120 INHALA IH (10:14)
[2017-09-19] MEDS ORDERED: SPIRIVA RESPIMAT4 GM IH (10:16)
[2017-09-19] MEDS ORDERED: PEPCID40 MG PO (10:27)
[2017-09-19] MEDS ORDERED: PREDNISONE10 MG PO (11:54)
== END 2017-09-19 14:26 | disposition home or self-care (01) | DRG 377 ==
LOC: EME 09:57 → EDOF 12:54 → 5EAST 12:54 → CANRESERV 12:59 → ENRESERV 12:59 → 5EAST 17:46 → ENPENDDIS 09-19 → 5EAST 09-19 14:26
PROVIDERS: Emergency Medicine; Hospitalist; Internal Medicine; Internal Medicine Gastroenterology
DX: K92.0 Hematemesis (principal); A04.71 Enterocolitis due to Clostridium difficile, recurrent; J18.9 Pneumonia, unspecified organism; Y95 Nosocomial condition; J44.0 Chronic obstructive pulmonary disease with (acute) lower respiratory infection; C34.11 Malignant neoplasm of upper lobe, right bronchus or lung; J44.1 Chronic obstructive pulmonary disease with (acute) exacerbation; E87.6 Hypokalemia; C78.7 Secondary malignant neoplasm of liver and intrahepatic bile duct; I10 Essential (primary) hypertension; E78.5 Hyperlipidemia, unspecified; G62.9 Polyneuropathy, unspecified; K21.0 Gastro-esophageal reflux disease with esophagitis; R13.10 Dysphagia, unspecified; K29.70 Gastritis, unspecified, without bleeding; E03.9 Hypothyroidism, unspecified; D64.9 Anemia, unspecified; G47.33 Obstructive sleep apnea (adult) (pediatric); K64.9 Unspecified hemorrhoids; K25.9 Gastric ulcer, unspecified as acute or chronic, without hemorrhage or perforation; Z87.01 Personal history of pneumonia (recurrent); Z86.010 Personal history of colon polyps; Z87.11 Personal history of peptic ulcer disease; Z87.19 Personal history of other diseases of the digestive system; Z92.21 Personal history of antineoplastic chemotherapy; Z92.3 Personal history of irradiation; Z87.891 Personal history of nicotine dependence; Z80.0 Family history of malignant neoplasm of digestive organs; Z82.49 Family history of ischemic heart disease and other diseases of the circulatory system
CPT/HCPCS: 71045; 71046; 71260; 74177; 80048; 80053; 80202; 81003; 82271; 82565; 83605; 83735; 84132; 84132 91; 85014; 85018; 85025; 85027; 86850; 86900; 86901; 87040; 87070; 87205; 87449; 87641; 90686; 93005; 94640; 94640 76; 99202; 99281; 99285; C9113; J0456; J0692; J2270; J2405; J2543; J2920; J3370; J3480; J7030; J7050; S0028; S0030

== ENCOUNTER 2018-01-06 14:44 | Inpatient (IN) | payer OTHER ==
[~2018-01-06] VITALS: Ht 175.3 cm; Wt 68.6 kg
[~2018-01-06 14:44] MED LIST changes: +ADVAIR HFA120 INHALA IH; +AUGMENTIN875 MG PO; +DOXYCYCLINE HY100 MG PO; +DOXYCYCLINE MO100 M1 PO; +LOMOTIL TABLET1 EACH PO; +METRONIDAZOLE500 MG PO; +PREDNISONE20 MG PO; +SPIRIVA RESPIMAT4 GM IH; +VANCOMYCIN125 MG/2.5 PO
[2018-01-06 15:58] LABS: BASOPHIL (%) 0.2 % (0-1); EOSINOPHIL (%) 0.1 % (0-5); HEMATOCRIT 28.9 % (38.0-50.0); HEMOGLOBIN 9.5 G/DL (12.5-16.6); IMMATURE GRANULOCYTE (%) 0.5 % (0.0-0.7); LYMPHOCYTE (%) 2.8 % (15-42); LYMPHOCYTE COUNT 0.5 K/uL (1.0-2.8); MCH 31.3 PG (29.0-34.0); MCHC 32.9 G/DL (30.0-36.0); MCV 95.1 FL (86-99); MONOCYTE (%) 6.1 % (3-12); MONOCYTE COUNT 1.1 K/uL (0-0.8); NEUTROPHIL (%) 90.3 % (45-76); NEUTROPHIL COUNT 16.5 K/uL (1.8-6.4); PLATELET COUNT 150 K/uL (156-360); RBC DIS.WIDTH-SD 52.5 % (39-53); RED BLOOD COUNT 3.04 M/uL (4.00-5.50); WHITE BLOOD COUNT 18.2 K/uL (4.1-10.2)
[2018-01-06 16:07] LABS: INTER. NORMALIZED RATIO 1.2
[2018-01-06 16:08] LABS: ALBUMIN 3.2 g/dL (3.2-4.8); CHLORIDE 98 mEq/L (99-109); SODIUM 134 mEq/L (136-147)
[2018-01-06 16:10] LABS: GLUCOSE 131 mg/dL (70-99); PTT 31.3 SEC (25-37)
[2018-01-06 16:11] LABS: TOTAL PROTEIN 5.6 g/dL (6.4-8.3)
[2018-01-06 16:12] LABS: TOTAL BILIRUBIN 0.4 mg/dL (0.0-1.0)
[2018-01-06 16:14] LABS: ALKALINE PHOSPHATASE 150 IU/L (3-129); CREATININE 0.8 mg/dL (0.6-1.3); GFR ESTIMATE (CALCULATED) > 59 mL/min/ (58.99-99999)
[2018-01-06 16:15] LABS: UREA NITROGEN (BUN) 10 mg/dL (9-23)
[2018-01-06 16:16] LABS: AST (GOT) 12 IU/L (2-34)
[2018-01-06 16:17] LABS: ALT (GPT) 9 IU/L (3-49); LIPASE 4 U/L (1.0-51.0)
[2018-01-06 16:20] LABS: TROP-I INTERPRETATION NEGATIVE; TROPONIN-I < 0.01 ng/mL (0.0-0.30)
[2018-01-06 19:11] LABS: APPEARANCE CLEAR ((CLEAR)); BILIRUBIN NEGATIVE; BLOOD NEGATIVE; COLOR STRAW ((YELLOW)); GLUCOSE (STRIP) NEGATIVE; KETONES 5; LEUKOCYTES NEGATIVE; NITRITE NEGATIVE; PROTEIN (STRIP) NEGATIVE; UCUL ADDED? NO; UROBILINOGEN 0.2 MG/DL (0.2-1.0)
[2018-01-06 20:15] VITALS: BP 119/69
[2018-01-06 22:55] LABS: HDL CHOLESTEROL 43 MG/DL (Desirable>=40); LDL CHOLESTEROL 68 mg/dL (Desirable<100); NON-HDL CHOLESTEROL 84 mg/dL (Desirable<160); TOTAL CHOLESTEROL 127 mg/dL (Desirable<200); TRIGLYCERIDES 78 MG/DL (Normal: <150)
[2018-01-07 00:40] VITALS: BP 108/60
[2018-01-07 04:37] VITALS: BP 101/64
[2018-01-07 05:19] LABS: BASOPHIL (%) 0.3 % (0-1); EOSINOPHIL (%) 0.6 % (0-5); EOSINOPHIL COUNT 0.1 K/uL (0-0.3); HEMATOCRIT 27.7 % (38.0-50.0); HEMOGLOBIN 8.6 G/DL (12.5-16.6); IMMATURE GRANULOCYTE (%) 0.5 % (0.0-0.7); LYMPHOCYTE (%) 12.5 % (15-42); LYMPHOCYTE COUNT 1.1 K/uL (1.0-2.8); MCV 96.5 FL (86-99); MONOCYTE (%) 10.9 % (3-12); NEUTROPHIL (%) 75.2 % (45-76); NEUTROPHIL COUNT 6.7 K/uL (1.8-6.4); PLATELET COUNT 148 K/uL (156-360); RBC DIS.WIDTH-CV 15.1 % (11.8-14.6); RBC DIS.WIDTH-SD 53.1 % (39-53); RED BLOOD COUNT 2.87 M/uL (4.00-5.50); WHITE BLOOD COUNT 8.9 K/uL (4.1-10.2)
[2018-01-07 05:51] LABS: ALBUMIN 2.3 G/DL (3.2-4.8); ALKALINE PHOSPHATASE 96 IU/L (3-129); ALT (GPT) 7 IU/L (3-49); AST (GOT) 10 IU/L (2-34); CHLORIDE 104 MEQ/L (99-109); CREATININE 0.7 MG/DL (0.6-1.3); DIRECT BILIRUBIN 0.1 mg/dL (0.0-0.3); GFR ESTIMATE (CALCULATED) > 59 mL/min/ (58.99-99999); GLUCOSE 104 mg/dL (70-99); POTASSIUM 3.4 MEQ/L (3.7-5.4); SODIUM 138 MEQ/L (136-147); TOTAL BILIRUBIN 0.4 MG/DL (0.0-1.0); TOTAL PROTEIN 4.5 G/DL (6.4-8.3); UREA NITROGEN (BUN) 8 mg/dL (9-23)
[2018-01-07 07:30] VITALS: BP 142/75
[2018-01-07 09:37] LABS: HEMOGLOBIN A1c (GLYCOHEMOGLOB) 5.4 % (Below 5.7)
[2018-01-07 12:28] VITALS: BP 139/77
[2018-01-07 15:56] VITALS: BP 123/62
[2018-01-07 19:30] VITALS: BP 121/70
[2018-01-08] VITALS: BP 115/63
[2018-01-08 07:27] VITALS: BP 131/65
[2018-01-08 12:08] LABS: C DIFF TOXIN NEGATIVE (NEGATIVE)
[2018-01-08 13:49] VITALS: BP 129/66
[2018-01-08 16:36] VITALS: BP 147/80
[2018-01-08 19:30] VITALS: BP 134/75
[2018-01-09] VITALS (7 sets, daily range): BP systolic 118–148; BP diastolic 61–81
[2018-01-09 06:18] LABS: HEMATOCRIT 27.8 % (38.0-50.0); HEMOGLOBIN 8.9 G/DL (12.5-16.6); MCH 30.9 PG (29.0-34.0); MCV 96.5 FL (86-99); NRBC (%) 0.1 /100 WBC (0-0); RBC DIS.WIDTH-CV 15.2 % (11.8-14.6); RBC DIS.WIDTH-SD 53.9 % (39-53); RED BLOOD COUNT 2.88 M/uL (4.00-5.50); WHITE BLOOD COUNT 14.7 K/uL (4.1-10.2)
[2018-01-09 06:19] LABS: PLATELET COUNT 229 K/uL (156-360)
[2018-01-09 06:44] LABS: CHLORIDE 108 MEQ/L (99-109); CREATININE 0.7 MG/DL (0.6-1.3); GFR ESTIMATE (CALCULATED) > 59 mL/min/ (58.99-99999); GLUCOSE 124 mg/dL (70-99); POTASSIUM 3.8 MEQ/L (3.7-5.4); SODIUM 142 MEQ/L (136-147); UREA NITROGEN (BUN) 8 mg/dL (9-23)
[2018-01-10 00:16] VITALS: BP 143/68
[2018-01-10 07:20] VITALS: BP 164/92
[2018-01-10] MEDS ORDERED: AMOX TR-K CLV1 EAC4 PO (10:41)
[2018-01-10] MEDS ORDERED: DEXAMETHASONE4 MG PO (10:42)
[2018-01-10] MEDS ORDERED: MORPHINE SULFAT15 MG PO (10:44)
[2018-01-10] MEDS ORDERED: FLORASTOR250 MG PO (10:44)
[2018-01-10 11:35] VITALS: BP 16/68
== END 2018-01-10 12:17 | disposition home or self-care (01) | DRG 871 ==
LOC: EME 14:44 → 4EAST 18:53 → EDOF 18:53 → ENRESERV 18:55 → 4EAST 20:01 → CANRESERV 01-08 11:17 → ENRESERV 01-08 11:17 → CANRESERV 01-08 13:31 → ENRESERV 01-09 13:33 → 5EAST 01-09 16:56
PROVIDERS: Emergency Medicine; Hospitalist
DX: A41.9 Sepsis, unspecified organism (principal); R65.20 Severe sepsis without septic shock; J96.01 Acute respiratory failure with hypoxia; J18.9 Pneumonia, unspecified organism; G93.6 Cerebral edema; C79.31 Secondary malignant neoplasm of brain; J44.0 Chronic obstructive pulmonary disease with (acute) lower respiratory infection; J44.1 Chronic obstructive pulmonary disease with (acute) exacerbation; C78.7 Secondary malignant neoplasm of liver and intrahepatic bile duct; J98.11 Atelectasis; R19.7 Diarrhea, unspecified; I10 Essential (primary) hypertension; E78.5 Hyperlipidemia, unspecified; K21.9 Gastro-esophageal reflux disease without esophagitis; E03.9 Hypothyroidism, unspecified; Y95 Nosocomial condition; Z85.118 Personal history of other malignant neoplasm of bronchus and lung; Z86.11 Personal history of tuberculosis; Z86.010 Personal history of colon polyps; Z86.19 Personal history of other infectious and parasitic diseases; Z87.01 Personal history of pneumonia (recurrent); Z87.11 Personal history of peptic ulcer disease; Z87.891 Personal history of nicotine dependence; Z92.21 Personal history of antineoplastic chemotherapy; Z92.3 Personal history of irradiation
CPT/HCPCS: 70450; 70553; 71275; 77334; 77470; 80048; 80053; 80061; 80076; 81003; 83036; 83605; 83690; 84484; 85025; 85027; 85610; 85730; 87040; 87070; 87205; 87449; 87493; 93005; 93880; 94640; 94640 76; 94799; 99202; 99281; 99285; J0295; J0456; J1100; J1644; J2405; J2543; J3370; J7030; J7050; J8540

== ENCOUNTER 2018-02-02 09:59 | Inpatient (IN) | payer OTHER ==
[~2018-02-02] VITALS: Ht 175.3 cm; Wt 69.5 kg
[~2018-02-02 09:59] MED LIST changes: +DEXAMETHASONE4 MG PO; +FLORASTOR250 MG PO
[2018-02-02 10:41] LABS: HEMATOCRIT 39.1 % (38.0-50.0); HEMOGLOBIN 12.8 G/DL (12.5-16.6); MCH 31.2 PG (29.0-34.0); MCHC 32.7 G/DL (30.0-36.0); MCV 95.4 FL (86-99); NRBC (%) 0.4 /100 WBC (0-0); PLATELET COUNT 165 K/uL (156-360); RBC DIS.WIDTH-CV 16.5 % (11.8-14.6); RBC DIS.WIDTH-SD 58.7 % (39-53); WHITE BLOOD COUNT 6.8 K/uL (4.1-10.2)
[2018-02-02 10:47] LABS: ALBUMIN 2.6 g/dL (3.2-4.8); CHLORIDE 102 mEq/L (99-109); POTASSIUM 3.5 mEq/L (3.7-5.4); SODIUM 135 mEq/L (136-147)
[2018-02-02 10:49] LABS: GLUCOSE 189 mg/dL (70-99)
[2018-02-02 10:51] LABS: TOTAL BILIRUBIN 0.9 mg/dL (0.0-1.0)
[2018-02-02 10:53] LABS: ALKALINE PHOSPHATASE 95 IU/L (3-129); GFR ESTIMATE (CALCULATED) > 59 mL/min/ (58.99-99999)
[2018-02-02 10:54] LABS: AST (GOT) 13 IU/L (2-34); UREA NITROGEN (BUN) 26 mg/dL (9-23)
[2018-02-02 10:56] LABS: ALT (GPT) 13 IU/L (3-49)
[2018-02-02 11:00] LABS: TROP-I INTERPRETATION NEGATIVE; TROPONIN-I 0.02 ng/mL (0.0-0.30)
[2018-02-02] MEDS ORDERED: FLONASE16 G1 BOTH NARES (13:31)
[2018-02-02] MEDS ORDERED: SPIRIVA RESPIMAT4 GM IH (13:32)
[2018-02-02] MEDS ORDERED: VIRTUSSIN AC L118 ML PO (13:32)
[2018-02-02] MEDS ORDERED: VERAPAMIL SR120 MG PO (13:33)
[2018-02-02] MEDS ORDERED: IMODIUM A-1 MG/7.5 M PO (13:34)
[2018-02-02] MEDS ORDERED: ALKA-SELTZER O1 EACH PO (13:35)
[2018-02-02] MEDS ORDERED: MORPHINE SULFAT15 MG PO (13:35)
[2018-02-02] MEDS ORDERED: PROBIOTIC1 EAC1 PO (13:36)
[2018-02-02] MEDS ORDERED: VENTOLIN HFA18 GM IH (13:37)
[2018-02-02] MEDS ORDERED: TUMS500 MG PO (13:37)
[2018-02-02 14:52] VITALS: BP 141/74
[2018-02-02 14:54] LABS: COMMENTS - BLOOD GASES A+C+; SITE RR
[2018-02-02 14:55] LABS: DEVICE HEATED HIGH FLOW; FI02 100 %; O2 FLOW 40 L/MIN; O2 SATURATION (CALCULATED) 95.6 % (95-99); PCO2 27 mm Hg (35-45); PO2 73 mm Hg (80-100); TOTAL RESP RATE 36 resp/min; pH 7.34 (7.35-7.45)
[2018-02-02 14:56] LABS: BASE EXCESS -9.7 mEq/L (-3 to +3); BICARBONATE 14.6 mEq/L (22-26)
[2018-02-02 19:00] VITALS: BP 127/66
[2018-02-02 22:30] VITALS: BP 117/63
[2018-02-03 04:00] VITALS: BP 127/75
[2018-02-03 07:30] VITALS: BP 134/78
[2018-02-03 10:10] LABS: CHLORIDE 109 MEQ/L (99-109); CREATININE 0.7 MG/DL (0.6-1.3); GFR ESTIMATE (CALCULATED) > 59 mL/min/ (58.99-99999); GLUCOSE 165 mg/dL (70-99); SODIUM 137 MEQ/L (136-147); UREA NITROGEN (BUN) 22 mg/dL (9-23)
[2018-02-03 11:40] VITALS: BP 131/65
[2018-02-03 15:55] VITALS: BP 143/80
[2018-02-03 19:54] VITALS: BP 142/75
[2018-02-03 22:22] VITALS: BP 150/81
[2018-02-04 03:50] VITALS: BP 157/93
[2018-02-04 07:25] VITALS: BP 161/99
[2018-02-04 07:47] LABS: COMMENTS - BLOOD GASES A+C+; DEVICE HEATED HIGH FLOW NC; FI02 90 %; O2 FLOW 50 L/MIN; SITE RR; TOTAL RESP RATE 34 resp/min; pH 7.46 (7.35-7.45)
[2018-02-04 07:48] LABS: BASE EXCESS -0.5 mEq/L (-3 to +3); BICARBONATE 22.8 mEq/L (22-26); PCO2 32 mm Hg (35-45); PO2 81 mm Hg (80-100)
[2018-02-04 12:34] VITALS: BP 156/82
[2018-02-04 15:37] VITALS: BP 180/94
[2018-02-04 16:44] VITALS: BP 155/78
[2018-02-04 23:45] VITALS: BP 143/78
[2018-02-05 04:21] VITALS: BP 137/80
[2018-02-05 07:05] VITALS: BP 144/94
[2018-02-05 11:00] VITALS: BP 149/78
[2018-02-05 20:03] VITALS: BP 132/68
[2018-02-06] VITALS (14 sets, daily range): BP systolic 98–148; BP diastolic 62–110
[2018-02-06 10:25] LABS: BASE EXCESS -2.9 mEq/L (-3 to +3); BICARBONATE 22.6 mEq/L (22-26); CARBOXY HGB 1.8 % (0-5); METHEMOGLOBIN 1.2 % (0-1.5); PCO2 41 mm Hg (35-45); PO2 63 mm Hg (80-100); pH 7.35 (7.35-7.45)
[2018-02-06 10:26] LABS: COMMENTS - BLOOD GASES A+C+; DEVICE HHFNC; FI02 100 %; O2 FLOW 70 L/MIN; SITE LR; TOTAL RESP RATE 30 resp/min
[2018-02-07] VITALS (18 sets, daily range): BP systolic 31–137; BP diastolic 17–84
[2018-02-07 05:46] LABS: HEMATOCRIT 29.5 % (38.0-50.0); MCHC 31.5 G/DL (30.0-36.0); MCV 98.3 FL (86-99); NRBC (%) 1.3 /100 WBC (0-0); RBC DIS.WIDTH-CV 17.7 % (11.8-14.6); RBC DIS.WIDTH-SD 64.1 % (39-53)
[2018-02-07 05:53] LABS: HEMOGLOBIN 9.3 G/DL (12.5-16.6)
[2018-02-07 06:02] LABS: ALKALINE PHOSPHATASE 51 IU/L (3-129); ALT (GPT) 22 IU/L (3-49); AST (GOT) 32 IU/L (2-34); CHLORIDE 111 MEQ/L (99-109); GLUCOSE 159 mg/dL (70-99); MAGNESIUM 1.9 mg/dl (1.3-2.7); PHOSPHORUS 4.1 mg/dL (2.5-4.9); POTASSIUM 3.6 MEQ/L (3.7-5.4); TOTAL BILIRUBIN 0.4 MG/DL (0.0-1.0)
[2018-02-07 06:06] LABS: ALBUMIN < 1.5 G/DL (3.2-4.8); CREATININE 1.3 MG/DL (0.6-1.3); GFR ESTIMATE (CALCULATED) 59 mL/min/ (58.99-99999); SODIUM 146 MEQ/L (136-147); UREA NITROGEN (BUN) 61 mg/dL (9-23)
[2018-02-07 07:01] LABS: ABS NEUTROPHIL COUNT 1.7; ANISOCYTOSIS 2+; BAND NEUTROPHILS 22.2 % (0-8.0); BURR CELLS 1+; EOSINOPHIL ABS CT 0; IMM.PLATELET FRACTION 27.5 (1-7); LYMPHOCYTES 1.9 % (15.0-45.0); MACROCYTES 2+; METAMYELOCYTES 7.4 %; MONOCYTES 18.5 % (0-9.0); MYELOCYTES 16.7 %; NUCLEATED RBC'S 6.5; PLAT.SUFFICIENCY VERY DECREASED; POIKILOCYTOSIS 2+; SEG.NEUTROPHILS 33.3 % (46.0-76.0); SMUDGE CELLS 4.6
[2018-02-07 07:03] LABS: PLATELET COUNT 5 K/uL (156-360)
[2018-02-07 11:51] LABS: MCH 31.3 PG (29.0-34.0); MCV 100.7 FL (86-99); NRBC (%) 1.6 /100 WBC (0-0); RBC DIS.WIDTH-CV 17.9 % (11.8-14.6); RBC DIS.WIDTH-SD 66.9 % (39-53); RED BLOOD COUNT 2.88 M/uL (4.00-5.50); WHITE BLOOD COUNT 2.5 K/uL (4.1-10.2)
[2018-02-07 12:18] LABS: ABS NEUTROPHIL COUNT 1.8; ANISOCYTOSIS 2+; EOSINOPHIL ABS CT 0; IMM.PLATELET FRACTION 31.8 (1-7); MACROCYTES 2+; METAMYELOCYTES 7.9 %; MONOCYTES 12.4 % (0-9.0); MYELOCYTES 6.2 %; NUCLEATED RBC'S 6.2; PLAT.SUFFICIENCY VERY DECREASED; SEG.NEUTROPHILS 42.5 % (46.0-76.0); SMUDGE CELLS 6.2; TOX.VACUOLIZATION 3+; TOXIC GRANULATION 3+
[2018-02-07 12:23] LABS: PLATELET COUNT 3 K/uL (156-360)
[2018-02-07 13:30] LABS: CHLORIDE 112 MEQ/L (99-109); CREATININE 1.5 MG/DL (0.6-1.3); GFR ESTIMATE (CALCULATED) 50 mL/min/ (58.99-99999); GLUCOSE 166 mg/dL (70-99); SODIUM 147 MEQ/L (136-147); TOTAL BILIRUBIN 0.4 MG/DL (0.0-1.0); UREA NITROGEN (BUN) 68 mg/dL (9-23)
[2018-02-07 13:41] LABS: ALBUMIN < 1.5 G/DL (3.2-4.8); ALKALINE PHOSPHATASE 50 IU/L (3-129); ALT (GPT) 21 IU/L (3-49); AST (GOT) 31 IU/L (2-34); TOTAL PROTEIN 3.9 G/DL (6.4-8.3)
[2018-02-07 13:47] LABS: INTER. NORMALIZED RATIO 1.1
[2018-02-07 13:49] LABS: PTT 28.6 SEC (25-37)
[2018-02-07 14:32] LABS: FIBRINOGEN > 1000 mg/dL (150-450)
[2018-02-07 15:11] LABS: D-DIMER LATEX POSITIVE
[2018-02-07 15:48] LABS: SCHISTOCYTES RARE
== END 2018-02-07 19:29 | DRG 871 ==
LOC: EME 09:59 → EDOF 12:40 → 4EAST 12:40 → ENRESERV 12:45 → 4EAST 14:33 → ENRESERV 02-06 11:49 → 4WEST 02-06 11:52 → ENRESERV 02-07 20:10
PROVIDERS: Emergency Medicine Emergency Medical Services; Hospitalist; Internal Medicine; Internal Medicine Medical Oncology; Specialist
PROC: 5A09357 Assistance with Respiratory Ventilation, Less than 24 Consecutive Hours, Continuous Positive Airway Pressure (ICD-10-PCS; principal; 2018-02-06)
PROC: 30233R1 Transfusion of Nonautologous Platelets into Peripheral Vein, Percutaneous Approach (ICD-10-PCS; 2018-02-07)
DX: A41.9 Sepsis, unspecified organism (principal); J15.1 Pneumonia due to Pseudomonas; J96.21 Acute and chronic respiratory failure with hypoxia; C34.91 Malignant neoplasm of unspecified part of right bronchus or lung; I46.9 Cardiac arrest, cause unspecified; J20.8 Acute bronchitis due to other specified organisms; B96.5 Pseudomonas (aeruginosa) (mallei) (pseudomallei) as the cause of diseases classified elsewhere; J44.0 Chronic obstructive pulmonary disease with (acute) lower respiratory infection; J44.1 Chronic obstructive pulmonary disease with (acute) exacerbation; C78.7 Secondary malignant neoplasm of liver and intrahepatic bile duct; C79.31 Secondary malignant neoplasm of brain; B44.1 Other pulmonary aspergillosis; D61.818 Other pancytopenia; E87.2 Acidosis; I11.0 Hypertensive heart disease with heart failure; I50.9 Heart failure, unspecified; E87.6 Hypokalemia; G62.9 Polyneuropathy, unspecified; E03.9 Hypothyroidism, unspecified; E78.5 Hyperlipidemia, unspecified; K21.9 Gastro-esophageal reflux disease without esophagitis; F41.9 Anxiety disorder, unspecified; Y95 Nosocomial condition; Z66 Do not resuscitate; Z87.891 Personal history of nicotine dependence; Z86.010 Personal history of colon polyps; Z92.21 Personal history of antineoplastic chemotherapy; Z92.3 Personal history of irradiation
CPT/HCPCS: 36600; 71045; 80048; 80053; 82803; 83605; 83735; 83880; 84100; 84484; 85025; 85025 91; 85027; 85378; 85379; 85384; 85610; 85730; 86850; 86900; 86901; 87040; 87070; 87205; 87449; 87502; 87641; 93005; 94002; 94003; 94640; 94640 76; 94667; 94799; 99202; 99281; 99285; C9113; J0456; J0692; J0696; J1100; J1650; J1885; J2060; J2270; J2930; J3370; J3465; J3475; J7030; J7040; J8540; P9035; S0028; S0073